=== PATIENT | female | born 2000 | race American Indian/Alaskan Native ===

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

== ENCOUNTER 2020-07-26 02:12 | Emergency (ER) | payer SELFPAY ==
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
[2020-07-26 02:33] VITALS: BP 118/85; PULSE 101
[2020-07-26 02:51] LABS: ANION GAP 16.1 mEq/L (7-13); CHLORIDE,CL 108 mmol/L (98-107); SODIUM,NA 146 mmol/L (136-145)
[2020-07-26] MEDS ORDERED: Potassium Chloride 10 MEQ Tab.ER PO ONE (02:56)
== END 2020-07-26 03:06 | disposition home or self-care (01) ==
LOC: DL.ED 02:12
DX: F41.9 Anxiety disorder, unspecified (principal); E87.6 Hypokalemia; F15.10 Other stimulant abuse, uncomplicated
CPT/HCPCS: 36415; 80053; 80305; 80307; 81003; 81025; 85025; 99283; A9270

== ENCOUNTER 2020-09-02 23:12 | Emergency (ER) | payer SELFPAY ==
[2020-09-02 23:36] VITALS: BP 115/67; PULSE 109
== END 2020-09-03 01:25 | disposition left against medical advice (07) ==
LOC: DL.ED 23:12
DX: Z53.21 Procedure and treatment not carried out due to patient leaving prior to being seen by health care provider (principal)